=== PATIENT | female | born 1975 | race Two or more races ===

== ENCOUNTER 2018-03-02 23:39 | Emergency (ER) | payer MEDICAID ==
[2018-03-02 23:55] VITALS: BP 132/86
--- NOTE | 2018-03-02 23:56 | EDPHY ---
H & P Stated Complaint: fatigued anxiety / marco need work note Time Seen by Provider: 03/02/18 23:56 HPI/ROS: HPI CHIEF COMPLAINT: Need Work Note, Cant Sleep HISTORY OF PRESENT ILLNESS: 42-year-old female, presents emergency room stating that she needs a work note she missed work on , additionally she states that she suffers from bipolar disorder and is not been sleeping very well over the past 4-5 days. She reports to me that she does not have a local primary care doctor nor does she have a psychiatrist and she does not take any medications for bipolar disorder. She states she has not been sleeping for the past 4-5 days. She denies any hallucination she denies wanting to hurt herself or anybody else. Her main complaint this evening is she needs a work note she missed work on . Additionally after further discussion with her she would like resources for mental health outpatient resources which will provide for her and additionally primary care doctor. She states she just moved here. Past Medical History: Bipolar disorder Past Surgical History: Denies any recent surgical history Social History: Smokes tobacco, denies illicit drugs or alcohol. Family History: Noncontributory ROS REVIEW OF SYSTEMS: A comprehensive 10 point review of systems is otherwise negative aside from elements mentioned in the history of present illness. Exam Constitutional triage nursing summary reviewed, vital signs reviewed, awake/ alert. Eyes normal conjunctivae and sclera, EOMI, PERRLA. HENT normal inspection, atraumatic, moist mucus membranes, no epistaxis, neck supple/ no meningismus, no raccoon eyes. Respiratory clear to auscultation bilaterally, normal breath sounds, no respiratory distress, no wheezing. Cardiovascular rate normal, regular rhythm, no murmur, no edema, distal pulses normal. Gastrointestinal soft, non-tender, no rebound, no guarding, normal bowel sounds, no distension, no pulsatile mass. Genitourinary no CVA tenderness. Musculoskeletal no midline vertebral tenderness, full range of motion, no calf swelling, no tenderness of extremities, no meningismus, good pulses, neurovascularly intact. Skin pink, warm, & dry, no rash, skin atraumatic. Neurologic awake, alert and oriented x 3, AAOx3, moves all 4 extremities equally, motor intact, sensory intact, CN II-XII intact, normal cerebellar, normal vision, normal speech. Psychiatric bipolar disorder, poor sleep recent, not psychotic denies SI or HI. Heme/Lymph/Immune no lymphadenopathy. Differential Diagnosis: Includes but is not limited to in a particular order mood disorder, bipolar disorder, acute psychosis, marco, depression, suicidal ideation, homicidal ideation, work note Medical Decision Making: Plan for this patient will provide patient with a work note. Additionally will give her outpatient resources for mental health. Additionally for sleep I have offered her it hydroxyzine. The patient specifically asked for Ativan however decline. She will need to get a primary care doctor as well as outpatient psychiatrist. Hydroxyzine as prescribed. Work note. Re-evaluation: Source: Patient - Personal History LMP (Females 10-55): 1-7 Days Ago Current Tetanus/Diphtheria Vaccine: Unsure Current Tetanus Diphtheria and Acellular Pertussis (TDAP): Unsure - Medical/Surgical History Hx Asthma: No Hx Chronic Respiratory Disease: No Hx Diabetes: No Hx Cardiac Disease: No Hx Renal Disease: No Hx Cirrhosis: No Hx Alcoholism: No Hx HIV/AIDS: No Hx Splenectomy or Spleen Trauma: No Other PMH: bipolar - Social History Smoking Status: Current some day smoker Constitutional: Initial Vital Signs Temperature (C) 36.5 C 03/02/18 23:49 Heart Rate 82 03/02/18 23:49 Respiratory Rate 18 03/02/18 23:49 Blood Pressure 132/86 H 03/02/18 23:49 O2 Sat (%) 94 03/02/18 23:49 O2 Delivery Mode Room Air Allergies/Adverse Reactions: atomoxetine [From Strattera] Allergy (Verified 03/02/18 23:48) lamotrigine Allergy (Verified 03/02/18 23:48) lithium Allergy (Verified 03/02/18 23:48) Penicillins Allergy (Verified 03/02/18 23:48) risperidone Allergy (Verified 03/02/18 23:48) Home Medications: Medication Instructions Recorded Cbd Oil 03/02/18 hydrOXYzine HCL [Hydroxyzine HCl] 50 mg PO DAILY #10 tablet 03/03/18 Departure - Departure Disposition: Home, Routine, Self-Care Clinical Impression: Bipolar disorder Qualifiers: Active/Remission status: currently active Current bipolar episode type: mixed Current episode severity: mild Qualified Code(s): F31.61 - Bipolar disorder, current episode mixed, mild Condition: Good Instructions: Bipolar Disorder (ED) Referrals: Patient,NotPresent [Unknown] - As per Instructions Stand Alone Forms: Work Excuse Prescriptions: hydrOXYzine HCL [Hydroxyzine HCl] 50 mg PO DAILY #10 tablet
[2018-03-03] MEDS ORDERED: diphenhydrAMINE 25 MG CAP PO ONE ×2 (00:58→00:59)
== END 2018-03-03 01:03 | disposition home or self-care (01) ==
DX: F31.61 Bipolar disorder, current episode mixed, mild (principal); F17.200 Nicotine dependence, unspecified, uncomplicated